=== PATIENT | female | born 1955 | race African-American/Black ===

== ENCOUNTER 2022-11-25 10:09 | Emergency (ER) | payer SELFPAY ==
[~2022-11-25] VITALS: Ht 165.1 cm; Wt 100.0 kg
[2022-11-25 10:14] VITALS: TEMP 98.9; O2SAT 98
[2022-11-25 11:07] LABS: BASOPHILS % 0.7 % (0.0-2.0); EOSINOPHILS % 3.3 % (0.0-5.0); HEMOGLOBIN. 14.1 g/dL (12.0-16.0); MEAN CORPUSCULAR HEMOGLOBIN 26.2 pg (28.0-32.0); MEAN CORPUSCULAR VOLUME 79.9 fL (81.0-99.0); MEAN PLATELET VOLUME 7.9 fl (7.4-10.4); PLATELET 328 x1000/uL (130-400); RED BLOOD CELL COUNT 5.38 mill/uL (4.2-5.4); RED CELL DISTRIBUTION WIDTH 14.4 % (11.6-14.6)
[2022-11-25 11:22] LABS: CHLORIDE 106 mEq/L (98-107)
[2022-11-25] MEDS ORDERED: AMLODIPINE 10MG TABLET PO ONE (12:30)
[2022-11-25] MEDS ORDERED: METOCLOPRAMIDE HCL 10MG/2ML VIAL IV ONE (12:30)
[2022-11-25] MEDS ORDERED: KETOROLAC 30MG/ML VIAL IV ONE (12:30)
[2022-11-25] MEDS ORDERED: AMLODIPINE 5MG TABLET PO SCH (14:15)
[2022-11-25 14:37] VITALS: BP 169/85; PULSE 72; RESP 15
== END 2022-11-25 15:41 | disposition home or self-care (01) ==
LOC: ER 10:09
DX: R51.9 Headache, unspecified (principal); R11.2 Nausea with vomiting, unspecified; E78.00 Pure hypercholesterolemia, unspecified; I10 Essential (primary) hypertension; Z98.890 Other specified postprocedural states
CPT/HCPCS: 80053; 83880; 85025; 84484; 36415; 71045; 70450; 93005; 96374; 96375; 99285; J1885; J2765; Z7610